=== PATIENT | male | born 1955 | race Caucasian/White ===

== ENCOUNTER 2017-02-21 11:32 | Emergency (ER) | payer OTHER ==
--- NOTE | ~2017-02-21 | CR63 ---
[facility] A Service of [facility] RADIOLOGY TEXT RESULTS PATIENT: TYSON INIGUEZ LOCATION: [place] : 53 UNIT #: [id number] AGE: [address]: Daniel Díaz MD SEX: M ORDER DR: [id number] [address] [address] [id number] MR#: [id number] Acc #: [id number] NAME: TYSON INIGUEZ : 1955 SEX: M STUDY DATE/TIME: 02/21/2017 10:30 UNIT: [place] ROOM: STUDY DESCRIPTION: CR Chest 2 View Attending Physician: Daniel Díaz M.D. Ordering Physician: Daniel Díaz M.D. Primary Care Physician: Primary Care Physician No MEDICAL IMAGING REPORT This report is preliminary unless electronic signature is present EXAM PA and lateral chest two views 02/21/2017 COMPARISON 11/11/2016 HISTORY Short of air and cough for one day. FINDINGS PA and lateral examination of the chest upright shows a good expansion of the parenchyma with a normal distribution of the pulmonary vascularity. There is no indication of congestion, effusion, infiltrate, tumor, or nodular density. The pleural reflections and diaphragmatic contours are normal. The cardiac silhouette and mediastinal anatomy is within normal limits. IMPRESSION Normal chest. Dictated by... Merrick Smith M.D. THIS IS AN ELECTRONICALLY VERIFIED REPORT Merrick Smith M.D. at 02/22/2017 3:53 PM TEV/pavan TD: 02/21/2017 11:30 JOB #: [id number] [facility] A Service [facility] RADIOLOGY TEXT RESULTS PATIENT: TYSON INIGUEZ LOCATION: [place] : 53 UNIT #: [id number] AGE: [address]: Daniel Díaz MD SEX: M ORDER DR: MEDICAL IMAGING REPORT Page 1 of 1 COPY
[2017-02-21 11:04] LABS: BASOPHIL# 0.1 X10e3 (0-0.3); BASOPHIL% 1.3 % (0-2.5); EOSINOPHIL# 0.3 X10e3 (0-0.7); EOSINOPHIL% 4.1 % (0.0-7.0); HEMATOCRIT 38.7 % (38.0-50.0); HEMOGLOBIN 12.8 gm/dL (13.0-16.0); LYMPHOCYTE# 1.1 X10e3 (1.0-3.5); LYMPHOCYTE% 14.1 % (17.0-45.0); MEAN CELL VOLUME 88.3 FL (83-96); MEAN CORPUSCULAR HEMOGLOBIN 29.1 PG (28-34); MEAN PLATELET VOLUME 8.2 FL (6.5-11.5); MONOCYTE# 0.9 X10e3 (0-1.0); MONOCYTE% 10.8 % (3.0-12.0); NEUTROPHIL# 5.6 X10e3 (1.5-7.1); NEUTROPHIL% 69.7 % (40-75); PLATELET COUNT 319 X10e3 (140-420); RED BLOOD COUNT 4.39 X10e (3.90-5.60)
[2017-02-21 11:06] LABS: DIFF IND NO
[2017-02-21 11:29] LABS: BUN/CREATININE RATIO 6.45; CREATININE SERUM 7.9 mg/dL (0.6-1.4); GLOM FILT RATE Estimated 6.6 mL/min (>60)
[~2017-02-21 11:32] MED LIST: AMOXIL500 MG PO; ASPIRIN81 M2 PO; ASPIRIN81 MG PO; ATARAX PO; CARDURA4 M1 PO; CLONIDINE PO; CLOPIDOGREL BIS75 MG PO; GLUCOTROL PO; HCTZ PO; HYDRALAZINE HC100 MG PO; HYDRALAZINE HCL50 MG PO; KAYEXALATE453.6 GM PO; LASIX PO; LIPITOR20 MG PO; LOPRESSOR PO; NAPROSYN500 MG PO; NORCO1 TAB 10/3 PO; NORVASC PO; NORVASC10 MG PO; PLAVIX PO; SODIUM BICARBO650 MG PO; ZOCOR10 MG PO
== END 2017-02-21 11:55 | disposition home or self-care (01) ==
LOC: CED 11:32
PROVIDERS: Emergency Medicine
DX: J06.9 Acute upper respiratory infection, unspecified (principal); N18.6 End stage renal disease
CPT/HCPCS: 71020; 80048; 85025; 99283

== ENCOUNTER 2017-07-04 13:24 | Emergency (ER) | payer OTHER ==
[~2017-07-04] VITALS: Ht 160 cm; Wt 73.5 kg
== END 2017-07-04 14:20 | disposition home or self-care (01) ==
LOC: CED 13:24
DX: Z76.0 Encounter for issue of repeat prescription (principal); I12.9 Hypertensive chronic kidney disease with stage 1 through stage 4 chronic kidney disease, or unspecified chronic kidney disease; N18.9 Chronic kidney disease, unspecified; Z79.899 Other long term (current) drug therapy; Z90.89 Acquired absence of other organs
CPT/HCPCS: 99283

== ENCOUNTER 2017-07-05 16:01 | Emergency (ER) | payer OTHER ==
[~2017-07-05] VITALS: Ht 157.5 cm; Wt 73.5 kg
== END 2017-07-05 17:15 | disposition home or self-care (01) ==
LOC: CED 16:01
DX: H10.13 Acute atopic conjunctivitis, bilateral (principal); N18.6 End stage renal disease; Z79.899 Other long term (current) drug therapy; Z79.82 Long term (current) use of aspirin
CPT/HCPCS: 99283